=== PATIENT | male | born 1995 | race Two or more races ===

== ENCOUNTER 2024-10-08 16:35 | Inpatient (IN) | payer SELFPAY ==
[~2024-10-08] VITALS: Ht 175.3 cm; Wt 90.0 kg
[~2024-10-08 16:35] MED LIST: IBUP-2070 PO; NOCURR; VICOT
[2024-10-08 18:12] LABS: BASOPHILS % (AUTO) 0.2 % (0.0-2.0); EOSINOPHILS % (AUTO) 0.3 % (1.0-6.0); HEMATOCRIT 43.3 % (41-53); HEMOGLOBIN 14.6 g/dL (13.5-17.5); LYMPHOCYTES # (AUTO) 1.7 K/uL (1.0-4.8); LYMPHOCYTES % (AUTO) 12.4 % (22.0-44.0); MEAN CORPUSCULAR HEMOGLOBIN 29.6 pg (26.0-34.0); MEAN CORPUSCULAR HGB CONC 33.7 G/dL (31.0-37.0); MEAN CORPUSCULAR VOLUME 88 fL (80-100); MONOCYTES # (AUTO) 0.8 K/uL (0.1-1.0); NEUTROPHILS # (AUTO) 11.2 K/uL (1.8-7.7); NEUTROPHILS % (AUTO) 81.1 % (40.0-70.0); PLATELET COUNT (AUTO) 295 K/uL (150-450); RED BLOOD CELL COUNT(AUTO) 4.93 MIL/uL (4.50-5.90); RED CELL DISTRIBUTION WIDTH 12.9 % (11.5-14.5); WHITE BLOOD COUNT (AUTO) 13.8 K/uL (4.5-11.0)
[2024-10-08 18:24] LABS: ANION GAP 15 mmol/L (8-16); CALCIUM, TOTAL 9.3 mg/dL (8.8-10.5); CARBON DIOXIDE 23 mmol/L (22-29); CHLORIDE 99 mmol/L (98-107); CREATININE 1.12 mg/dL (0.60-1.30); GLOMERULAR FILTR. RATE CALC > 60 mL/min (>60); GLUCOSE,RANDOM 95 mg/dL (70-110); LIPASE 30 U/L (16-77); SODIUM SERUM 137 mmol/L (136-145); UREA NITROGEN, BLOOD 14 mg/dL (7-18)
[2024-10-08 18:27] LABS: BILIRUBIN,DIRECT 0.4 mg/dL (0.00-0.20)
[2024-10-08] MEDS: POTASSIUM CHLORIDE 20 MEQ ER TABLET PO ONE (19:16)
[2024-10-08] MEDS: MORPHINE SULFATE 4 MG/ML SYRINGE IVP ONE ×2 (19:16→21:50)
[2024-10-08] MEDS ORDERED: IOHEXOL 350 MG/ML 100 ML VIAL ONE (19:39)
[2024-10-08] MEDS ORDERED: 0.9% SODIUM CHLORIDE 10 ML SYRINGE IVP ONE (19:39)
[2024-10-08] MEDS ORDERED: SODIUM CHLORIDE 0.9% 100 ML ONE (19:39)
[2024-10-09] VITALS (7 sets, daily range): BP systolic 98–119; BP diastolic 55–70; PULSE 57–67; RESP 16–20; TEMP 97.4–98.3; O2SAT 95–99
[2024-10-09 00:10] LABS: APPEARANCE,URINE CLEAR (CLEAR); BILIRUBIN,URINE NEGATIVE (NEGATIVE); COLOR,URINE LIGHT YELLOW (YELLOW); GLUCOSE, URINE (UA) NEGATIVE (NEGATIVE); KETONES,URINE 80-100 mg/dL (NEGATIVE); LEUKOCYTE ESTERASE ,URINE NEGATIVE (NEGATIVE); NITRATE,URINE NEGATIVE (NEGATIVE); OCCULT BLOOD,URINE NEGATIVE (NEGATIVE); PH,URINE 5.5 (5.0-8.0); PROTEIN,URINE TRACE mg/dL (NEGATIVE); SPECIFIC GRAVITIY, URINE 1.017 (1.003-1.030); UROBILINOGEN,URINE <=1.0 mg/dL (<=1.0)
[2024-10-09 00:34] LABS: BACTERIA,URINE None Seen /HPF (None Seen); FINE GRANULAR CASTS,URINE 0-2 /LPF (None Seen); RBC,URINE None Seen /HPF (0-2); SQUAMOUS EPITHELIAL CELL,UR Rare /LPF (None Seen); WBC,URINE None Seen /HPF (0-5)
[2024-10-09] MEDS: MORPHINE SULFATE 2 MG/ML SYRINGE IVP ONE (01:15)
[2024-10-09] MEDS: POTASSIUM CHLORIDE 20 MEQ ER TABLET PO ONE ×2 (02:00→17:30)
[2024-10-09] MEDS ORDERED: ACETAMINOPHEN 325 MG TABLET PO PRN (02:00)
[2024-10-09] MEDS: DEXTROSE 5%-LACTATED RINGERS 1,000 ML IV SCH (03:30)
[2024-10-09] MEDS: ONDANSETRON HCL 4 MG/2 ML VIAL IVP PRN (05:08)
[2024-10-09] MEDS: MORPHINE SULFATE 2 MG/ML SYRINGE IVP PRN (05:59)
[2024-10-09] MEDS: HEPARIN SODIUM,PORCINE 5,000 UNITS/ML VIAL SQ SCH (08:36)
[2024-10-09 12:02] LABS: ANION GAP 11 mmol/L (8-16); CALCIUM, TOTAL 8.9 mg/dL (8.8-10.5); CARBON DIOXIDE 26 mmol/L (22-29); CHLORIDE 102 mmol/L (98-107); CREATININE 0.94 mg/dL (0.60-1.30); GLOMERULAR FILTR. RATE CALC > 60 mL/min (>60); GLUCOSE,RANDOM 100 mg/dL (70-110); POTASSIUM 3.3 mmol/L (3.5-5.1); SODIUM SERUM 139 mmol/L (136-145); UREA NITROGEN, BLOOD 9 mg/dL (7-18)
[2024-10-09 14:56] LABS: BASOPHILS % (AUTO) 0.4 % (0.0-2.0); EOSINOPHILS % (AUTO) 1.4 % (1.0-6.0); HEMATOCRIT 42.8 % (41-53); HEMOGLOBIN 14.9 g/dL (13.5-17.5); LYMPHOCYTES # (AUTO) 3.3 K/uL (1.0-4.8); LYMPHOCYTES % (AUTO) 43.6 % (22.0-44.0); MEAN CORPUSCULAR HEMOGLOBIN 30.8 pg (26.0-34.0); MEAN CORPUSCULAR HGB CONC 34.7 G/dL (31.0-37.0); MEAN CORPUSCULAR VOLUME 89 fL (80-100); MONOCYTES # (AUTO) 0.9 K/uL (0.1-1.0); MONOCYTES % (AUTO) 11.5 % (2.0-9.0); NEUTROPHILS # (AUTO) 3.3 K/uL (1.8-7.7); NEUTROPHILS % (AUTO) 43.1 % (40.0-70.0); PLATELET COUNT (AUTO) 307 K/uL (150-450); RED BLOOD CELL COUNT(AUTO) 4.84 MIL/uL (4.50-5.90); WHITE BLOOD COUNT (AUTO) 7.7 K/uL (4.5-11.0)
[2024-10-09 15:09] LABS: PROTHROMBIN TIME 11.5 SEC (9.4-11.6)
[2024-10-09 15:13] LABS: ANION GAP 13 mmol/L (8-16); CALCIUM, TOTAL 9.2 mg/dL (8.8-10.5); CARBON DIOXIDE 26 mmol/L (22-29); CHLORIDE 100 mmol/L (98-107); CREATININE 0.98 mg/dL (0.60-1.30); GLOMERULAR FILTR. RATE CALC > 60 mL/min (>60); GLUCOSE,RANDOM 95 mg/dL (70-110); SODIUM SERUM 139 mmol/L (136-145); UREA NITROGEN, BLOOD 7 mg/dL (7-18)
[2024-10-09 15:21] LABS: HEMOGLOBIN A1C 4.6 % (3.8-5.6)
[2024-10-09 15:23] LABS: ALANINE AMINOTRANSFERASE 39 U/L (12-78); ALKALINE PHOSPHATASE 51 U/L (46-116); ASPARTATE AMINOTRANSFERASE 46 U/L (15-37); BILIRUBIN,TOTAL 1.6 mg/dL (0.1-1.0); CHOL/HDL RATIO 2.8 (4.2-7.3); CHOLESTEROL 119 mg/dL (131-200); HDL CHOLESTEROL 42 mg/dL (40-60); LDL CHOL (CALC.) 62 mg/dL (0-130); TOTAL PROTEIN, SERUM 7.8 g/dL (6.4-8.2); TRIGLYCERIDES 77 mg/dL (15-150); TROPONIN I-HIGH SENSITIVITY 6 ng/L (<76)
[2024-10-09 20:55] LABS: GLUCOMETER DEV NAME(LOC) 6S.2; GLUCOSE,POINT OF CARE 90 MG/DL (70-110)
[2024-10-10 04:12] VITALS: BP 109/74; PULSE 59; RESP 18; TEMP 97.6; O2SAT 99
[2024-10-10 07:45] LABS: BASOPHILS % (AUTO) 0.4 % (0.0-2.0); EOSINOPHILS % (AUTO) 1.4 % (1.0-6.0); HEMATOCRIT 40.3 % (41-53); LYMPHOCYTES % (AUTO) 35.4 % (22.0-44.0); MEAN CORPUSCULAR HEMOGLOBIN 30.8 pg (26.0-34.0); MEAN CORPUSCULAR HGB CONC 34.8 G/dL (31.0-37.0); MEAN CORPUSCULAR VOLUME 88 fL (80-100); MONOCYTES # (AUTO) 0.6 K/uL (0.1-1.0); MONOCYTES % (AUTO) 10.6 % (2.0-9.0); NEUTROPHILS # (AUTO) 2.9 K/uL (1.8-7.7); NEUTROPHILS % (AUTO) 52.2 % (40.0-70.0); PLATELET COUNT (AUTO) 254 K/uL (150-450); RED BLOOD CELL COUNT(AUTO) 4.55 MIL/uL (4.50-5.90); RED CELL DISTRIBUTION WIDTH 12.5 % (11.5-14.5); WHITE BLOOD COUNT (AUTO) 5.6 K/uL (4.5-11.0)
[2024-10-10 07:57] LABS: ANION GAP 5 mmol/L (8-16); CALCIUM, TOTAL 8.7 mg/dL (8.8-10.5); CARBON DIOXIDE 31 mmol/L (22-29); CHLORIDE 105 mmol/L (98-107); CREATININE 0.96 mg/dL (0.60-1.30); GLOMERULAR FILTR. RATE CALC > 60 mL/min (>60); GLUCOSE,RANDOM 101 mg/dL (70-110); POTASSIUM 3.7 mmol/L (3.5-5.1); SODIUM SERUM 141 mmol/L (136-145); UREA NITROGEN, BLOOD 4 mg/dL (7-18)
[2024-10-10 08:00] VITALS: BP 108/68; PULSE 58; RESP 14; O2SAT 97
[2024-10-10 08:01] VITALS: BP 102/53; PULSE 61; RESP 18; TEMP 98.1; O2SAT 99
[2024-10-10 08:12] LABS: APPEARANCE,URINE CLEAR (CLEAR); BILIRUBIN,URINE NEGATIVE (NEGATIVE); COLOR,URINE LIGHT YELLOW (YELLOW); GLUCOSE, URINE (UA) NEGATIVE (NEGATIVE); KETONES,URINE TRACE mg/dL (NEGATIVE); LEUKOCYTE ESTERASE ,URINE NEGATIVE (NEGATIVE); NITRATE,URINE NEGATIVE (NEGATIVE); OCCULT BLOOD,URINE NEGATIVE (NEGATIVE); PROTEIN,URINE NEGATIVE (NEGATIVE); SPECIFIC GRAVITIY, URINE 1.015 (1.003-1.030); UROBILINOGEN,URINE <=1.0 mg/dL (<=1.0)
[2024-10-10 08:18] LABS: ALCOHOL, URINE DRUG SCREEN NEGATIVE (NEGATIVE); AMPHET/METH SCREEN,URINE NEGATIVE (NEGATIVE); BARBITURATE SCREEN, URINE NEGATIVE (NEGATIVE); BENZODIAZEPINES SCREEN,URINE NEGATIVE (NEGATIVE); CANNABINOID SCREEN,URINE POSITIVE (NEGATIVE); COCAINE SCREEN,URINE NEGATIVE (NEGATIVE); METHADONE SCREEN, URINE NEGATIVE (NEGATIVE); OPIATE SCREEN,URINE POSITIVE (NEGATIVE); PHENCYCLIDINE SCREEN,URINE NEGATIVE (NEGATIVE)
[2024-10-10] MEDS: MAGNESIUM CITRATE [LEMON] 300 ML ORAL SOLUTION PO ONE (12:22)
[2024-10-10 12:28] LABS: TROPONIN I-HIGH SENSITIVITY 4 ng/L (<76)
[2024-10-10 15:58] VITALS: BP 109/78; PULSE 57; RESP 19; TEMP 98.2; O2SAT 98
[2024-10-10] MEDS: PANTOPRAZOLE SODIUM 40 MG/VIAL IVP ONE (16:06)
[2024-10-10] MEDS ORDERED: IOHEXOL 350 MG/ML 100 ML VIAL ONE (17:02)
[2024-10-10] MEDS ORDERED: SODIUM CHLORIDE 0.9% 100 ML ONE (17:02)
[2024-10-10] MEDS ORDERED: 0.9% SODIUM CHLORIDE 10 ML SYRINGE IVP ONE (17:02)
[2024-10-11 00:40] VITALS: BP 111/69; PULSE 59; RESP 19; TEMP 98.9; O2SAT 100
[2024-10-11 08:05] VITALS: BP 115/60; PULSE 56; RESP 19; TEMP 98.2; O2SAT 99
[2024-10-11] MEDS: PANTOPRAZOLE SODIUM 40 MG/VIAL IVP SCH (08:36)
[2024-10-11] MEDS ORDERED: PANT-31 PO (12:40)
== END 2024-10-11 14:40 | disposition home or self-care (01) | DRG 392 ==
LOC: EMS 17:03 → EDH 10-09 01:55 → 6S 10-09 02:59
PROVIDERS: ADMIT Internal Medicine; ATTEND Internal Medicine
DX: K52.9 Noninfective gastroenteritis and colitis, unspecified (principal); E87.6 Hypokalemia; J45.909 Unspecified asthma, uncomplicated; K59.00 Constipation, unspecified; F17.200 Nicotine dependence, unspecified, uncomplicated; E80.6 Other disorders of bilirubin metabolism; Z79.899 Other long term (current) drug therapy; Z88.6 Allergy status to analgesic agent; Z90.49 Acquired absence of other specified parts of digestive tract; Z82.3 Family history of stroke; Z71.6 Tobacco abuse counseling
CPT/HCPCS: 70496; 70498; 71260; 74177; 80048; 80053; 80061; 80076; 80307; 81001; 81003; 82962; 83010; 83036; 83690; 83735; 84484; 85025; 85045; 85610; 85730; 86850; 86900; 86901; 99285; J1644; J2270; J2405; J2470; J7050

== ENCOUNTER 2024-12-19 06:17 | Inpatient (IN) | payer SELFPAY ==
[~2024-12-19] VITALS: Ht 172.7 cm; Wt 100.0 kg
[~2024-12-19 06:17] MED LIST changes: -IBUP-2070 PO; -NOCURR; +PANT-31 PO; -VICOT
[2024-12-19] MEDS: MORPHINE SULFATE 2 MG/ML SYRINGE IVP ONE ×2 (06:51→08:12)
[2024-12-19] MEDS: SODIUM CHLORIDE 0.9% 1,000 ML IV ONE (06:51)
[2024-12-19] MEDS: ONDANSETRON HCL 4 MG/2 ML VIAL IVP ONE (06:52)
[2024-12-19 06:53] LABS: BASOPHILS % (AUTO) 0.3 % (0.0-2.0); EOSINOPHILS % (AUTO) 0.2 % (1.0-6.0); HEMATOCRIT 49.2 % (41-53); HEMOGLOBIN 16.8 g/dL (13.5-17.5); LYMPHOCYTES # (AUTO) 2.2 K/uL (1.0-4.8); LYMPHOCYTES % (AUTO) 17.8 % (22.0-44.0); MEAN CORPUSCULAR HEMOGLOBIN 30.2 pg (26.0-34.0); MEAN CORPUSCULAR HGB CONC 34.2 G/dL (31.0-37.0); MEAN CORPUSCULAR VOLUME 88 fL (80-100); MONOCYTES # (AUTO) 0.9 K/uL (0.1-1.0); MONOCYTES % (AUTO) 7.4 % (2.0-9.0); NEUTROPHILS # (AUTO) 9.1 K/uL (1.8-7.7); NEUTROPHILS % (AUTO) 74.3 % (40.0-70.0); RED BLOOD CELL COUNT(AUTO) 5.57 MIL/uL (4.50-5.90); RED CELL DISTRIBUTION WIDTH 13.2 % (11.5-14.5); WHITE BLOOD COUNT (AUTO) 12.2 K/uL (4.5-11.0)
[2024-12-19 07:06] LABS: ANION GAP 7 mmol/L (8-16); CALCIUM, TOTAL 9.1 mg/dL (8.8-10.5); CARBON DIOXIDE 27 mmol/L (22-29); CHLORIDE 101 mmol/L (98-107); CREATININE 1.33 mg/dL (0.60-1.30); GLOMERULAR FILTR. RATE CALC > 60 mL/min (>60); GLUCOSE,RANDOM 117 mg/dL (70-110); POTASSIUM 3.5 mmol/L (3.5-5.1); SODIUM SERUM 135 mmol/L (136-145); UREA NITROGEN, BLOOD 10 mg/dL (7-18)
[2024-12-19 07:09] LABS: ALBUMIN 3.7 g/dL (3.4-5.0); BILIRUBIN,DIRECT 0.3 mg/dL (0.00-0.20); BILIRUBIN,TOTAL 2.2 mg/dL (0.1-1.0); TOTAL PROTEIN, SERUM 7.1 g/dL (6.4-8.2)
[2024-12-19 07:50] LABS: PLATELET COUNT (AUTO) 326 K/uL (150-450)
[2024-12-19 08:32] LABS: APPEARANCE,URINE CLEAR (CLEAR); BILIRUBIN,URINE NEGATIVE (NEGATIVE); COLOR,URINE COLORLESS (YELLOW); GLUCOSE, URINE (UA) NEGATIVE (NEGATIVE); KETONES,URINE TRACE mg/dL (NEGATIVE); LEUKOCYTE ESTERASE ,URINE NEGATIVE (NEGATIVE); NITRATE,URINE NEGATIVE (NEGATIVE); OCCULT BLOOD,URINE NEGATIVE (NEGATIVE); PH,URINE 7.5 (5.0-8.0); PH,URINE DRUG SCREEN 7.5 (5.0-8.0); PROTEIN,URINE NEGATIVE (NEGATIVE); SPECIFIC GRAVITIY, URINE 1.004 (1.003-1.030); UROBILINOGEN,URINE <=1.0 mg/dL (<=1.0)
[2024-12-19 08:35] LABS: BACTERIA,URINE None Seen /HPF (None Seen); RBC,URINE None Seen /HPF (0-2); WBC,URINE None Seen /HPF (0-5)
[2024-12-19 08:41] LABS: ALCOHOL, URINE DRUG SCREEN NEGATIVE (NEGATIVE); AMPHET/METH SCREEN,URINE NEGATIVE (NEGATIVE); BARBITURATE SCREEN, URINE NEGATIVE (NEGATIVE); BENZODIAZEPINES SCREEN,URINE NEGATIVE (NEGATIVE); CANNABINOID SCREEN,URINE POSITIVE (NEGATIVE); COCAINE SCREEN,URINE NEGATIVE (NEGATIVE); METHADONE SCREEN, URINE NEGATIVE (NEGATIVE); OPIATE SCREEN,URINE NEGATIVE (NEGATIVE); PHENCYCLIDINE SCREEN,URINE NEGATIVE (NEGATIVE)
[2024-12-19] MEDS: HYDROmorphone HCL 2 MG/ML SYRINGE IVP ONE (11:35)
[2024-12-19] MEDS: LORazepam 2 MG/ML VIAL IVP ONE (11:36)
[2024-12-19] MEDS ORDERED: ZOLPIDEM TARTRATE 5 MG TABLET PO PRN (20:00)
[2024-12-19] MEDS ORDERED: ALBUTEROL SULFATE 2.5 MG/0.5 ML NEB SOLUTION NEB PRN (20:00)
[2024-12-19] MEDS ORDERED: IPRATROPIUM BROMIDE 0.5 MG/2.5 ML NEB SOLUTION NEB PRN (20:00)
[2024-12-19] MEDS ORDERED: BISACODYL 10 MG RECTAL RECTAL SUPPOSITORY PR PRN (20:00)
[2024-12-19] MEDS ORDERED: MAGNESIUM HYDROXIDE SUSPENSION 30 ML UDCUP PO PRN (20:00)
[2024-12-19 20:31] VITALS: BP 98/60; PULSE 60; RESP 18; TEMP 98.1; O2SAT 96
[2024-12-19] MEDS: HYDROCODONE/ACETAMINOPHEN 5-325 MG TABLET PO PRN (20:32)
[2024-12-19] MEDS: DOCUSATE SODIUM 100 MG CAPSULE PO SCH (20:38)
[2024-12-20] VITALS (8 sets, daily range): BP systolic 100–129; BP diastolic 61–80; PULSE 48–74; RESP 18–19; TEMP 97.9–98.8; O2SAT 95–99
[2024-12-20] MEDS: HEPARIN SODIUM,PORCINE 5,000 UNITS/ML VIAL SQ SCH (00:08)
[2024-12-20] MEDS: PANTOPRAZOLE SODIUM 40 MG/VIAL IVP SCH (09:36)
[2024-12-20] MEDS: ONDANSETRON HCL 4 MG/2 ML VIAL IVP PRN (12:55)
[2024-12-20] MEDS: MORPHINE SULFATE 2 MG/ML SYRINGE IVP PRN (12:55)
[2024-12-20] MEDS: ACETAMINOPHEN 325 MG TABLET PO PRN (16:26)
[2024-12-20] MEDS ORDERED: SODIUM CHLORIDE 0.9% 500 ML IV ONE (19:47)
[2024-12-20] MEDS: PANTOPRAZOLE SODIUM 80 MG in SODIUM CHLORIDE 0.9% 100 ML IV SCH (20:01)
[2024-12-20] MEDS: SUCRALFATE 1 GM TABLET PO SCH (20:01)
[2024-12-21] VITALS (7 sets, daily range): BP systolic 101–117; BP diastolic 64–71; PULSE 44–56; RESP 17–19; TEMP 97.9–98.4; O2SAT 97–100
[2024-12-21 06:28] LABS: BASOPHILS % (AUTO) 0.3 % (0.0-2.0); HEMATOCRIT 44.4 % (41-53); LYMPHOCYTES # (AUTO) 2.9 K/uL (1.0-4.8); LYMPHOCYTES % (AUTO) 34.7 % (22.0-44.0); MEAN CORPUSCULAR HEMOGLOBIN 29.9 pg (26.0-34.0); MEAN CORPUSCULAR HGB CONC 33.8 G/dL (31.0-37.0); MEAN CORPUSCULAR VOLUME 89 fL (80-100); MONOCYTES # (AUTO) 0.6 K/uL (0.1-1.0); MONOCYTES % (AUTO) 7.5 % (2.0-9.0); NEUTROPHILS # (AUTO) 4.8 K/uL (1.8-7.7); NEUTROPHILS % (AUTO) 56.5 % (40.0-70.0); PLATELET COUNT (AUTO) 257 K/uL (150-450); RED BLOOD CELL COUNT(AUTO) 5.01 MIL/uL (4.50-5.90); RED CELL DISTRIBUTION WIDTH 12.7 % (11.5-14.5); WHITE BLOOD COUNT (AUTO) 8.5 K/uL (4.5-11.0)
[2024-12-21 06:37] LABS: ANION GAP 6 mmol/L (8-16); CALCIUM, TOTAL 8.4 mg/dL (8.8-10.5); CARBON DIOXIDE 32 mmol/L (22-29); CHLORIDE 104 mmol/L (98-107); CREATININE 1.17 mg/dL (0.60-1.30); GLOMERULAR FILTR. RATE CALC > 60 mL/min (>60); GLUCOSE,RANDOM 90 mg/dL (70-110); POTASSIUM 3.1 mmol/L (3.5-5.1); SODIUM SERUM 142 mmol/L (136-145); UREA NITROGEN, BLOOD 9 mg/dL (7-18)
[2024-12-21] MEDS ORDERED: POTASSIUM CHLORIDE 10% 40 MEQ/30 ML LIQUID UDCUP PO ONE (13:45)
[2024-12-21] MEDS: POTASSIUM CHLORIDE 20 MEQ ER TABLET PO ONE (13:50)
[2024-12-21 14:11] LABS: FREE T4 (FREE THYROXINE) 1.29 ng/dL (0.76-1.46); THYROID STIMULATING HORMONE 2.27 uIU/mL (0.36-3.74)
[2024-12-22 03:06] VITALS: BP 115/72; PULSE 45; RESP 17; TEMP 98.1; O2SAT 100
[2024-12-22 07:18] LABS: BASOPHILS % (AUTO) 0.2 % (0.0-2.0); EOSINOPHILS % (AUTO) 1.5 % (1.0-6.0); HEMATOCRIT 42.6 % (41-53); HEMOGLOBIN 14.7 g/dL (13.5-17.5); LYMPHOCYTES # (AUTO) 1.8 K/uL (1.0-4.8); LYMPHOCYTES % (AUTO) 25.2 % (22.0-44.0); MEAN CORPUSCULAR HEMOGLOBIN 30.5 pg (26.0-34.0); MEAN CORPUSCULAR HGB CONC 34.5 G/dL (31.0-37.0); MEAN CORPUSCULAR VOLUME 88 fL (80-100); MONOCYTES # (AUTO) 0.6 K/uL (0.1-1.0); NEUTROPHILS # (AUTO) 4.8 K/uL (1.8-7.7); NEUTROPHILS % (AUTO) 65.1 % (40.0-70.0); PLATELET COUNT (AUTO) 247 K/uL (150-450); RED BLOOD CELL COUNT(AUTO) 4.82 MIL/uL (4.50-5.90); RED CELL DISTRIBUTION WIDTH 12.7 % (11.5-14.5); WHITE BLOOD COUNT (AUTO) 7.3 K/uL (4.5-11.0)
[2024-12-22 07:39] LABS: ANION GAP 6 mmol/L (8-16); CALCIUM, TOTAL 8.5 mg/dL (8.8-10.5); CARBON DIOXIDE 30 mmol/L (22-29); CHLORIDE 103 mmol/L (98-107); CREATININE 1.15 mg/dL (0.60-1.30); GLOMERULAR FILTR. RATE CALC > 60 mL/min (>60); GLUCOSE,RANDOM 85 mg/dL (70-110); POTASSIUM 3.3 mmol/L (3.5-5.1); SODIUM SERUM 139 mmol/L (136-145); UREA NITROGEN, BLOOD 10 mg/dL (7-18)
[2024-12-22 07:50] VITALS: BP 103/72; PULSE 44; RESP 18; TEMP 97.9; O2SAT 96
[2024-12-22] MEDS ORDERED: PANT-31 PO (11:22)
[2024-12-22] MEDS ORDERED: SUCR1TAB28 PO (11:22)
[2024-12-22 11:40] VITALS: BP 114/75; PULSE 50; RESP 18; O2SAT 97
[2024-12-22] MEDS: POTASSIUM CHLORIDE 20 MEQ ER TABLET PO ONE (12:22)
== END 2024-12-22 12:50 | disposition home or self-care (01) | DRG 392 ==
LOC: EMS 06:18 → EDH 11:46 → 4E 12:23 → 5S 12-20 21:20
PROVIDERS: ADMIT Hospitalist; ATTEND Hospitalist
DX: R10.13 Epigastric pain (principal); D72.829 Elevated white blood cell count, unspecified; E80.6 Other disorders of bilirubin metabolism; Z90.49 Acquired absence of other specified parts of digestive tract; Z88.6 Allergy status to analgesic agent
CPT/HCPCS: 74181; 76700; 80048; 80076; 80307; 81001; 84439; 84443; 85025; 99285; G0378; J1171; J1644; J2060; J2270; J2405; J2470; J7030; J7040; J7050

== ENCOUNTER 2025-02-25 16:53 | Emergency (ER) | payer SELFPAY ==
[~2025-02-25] VITALS: Ht 165.1 cm; Wt 106.4 kg
[~2025-02-25 16:53] MED LIST changes: +SUCR1TAB28 PO
[2025-02-25] MEDS: SODIUM CHLORIDE 0.9% 1,000 ML IV ONE (17:15)
[2025-02-25] MEDS: ONDANSETRON HCL 4 MG/2 ML VIAL IVP ONE (17:15)
[2025-02-25 17:36] LABS: PLATELET COUNT (AUTO) 319 K/uL (150-450); RED BLOOD CELL COUNT(AUTO) 4.66 MIL/uL (4.50-5.90); RED CELL DISTRIBUTION WIDTH 12.8 % (11.5-14.5); WHITE BLOOD COUNT (AUTO) 12.9 K/uL (4.5-11.0)
[2025-02-25 17:43] LABS: CALCIUM, TOTAL 9.4 mg/dL (8.8-10.5); CREATININE 1.16 mg/dL (0.60-1.30); GLOMERULAR FILTR. RATE CALC > 60 mL/min (>60); GLUCOSE,RANDOM 112 mg/dL (70-110); SODIUM SERUM 142 mmol/L (136-145); UREA NITROGEN, BLOOD 13 mg/dL (7-18)
[2025-02-25 17:53] LABS: ASPARTATE AMINOTRANSFERASE 23.0 U/L (15-37); TOTAL PROTEIN, SERUM 7.3 g/dL (6.4-8.2)
[2025-02-25] MEDS ORDERED: 0.9% SODIUM CHLORIDE 10 ML SYRINGE IVP ONE (19:17)
[2025-02-25] MEDS ORDERED: SODIUM CHLORIDE 0.9% 100 ML ONE (19:17)
[2025-02-25] MEDS ORDERED: IOHEXOL 350 MG/ML 100 ML VIAL ONE (19:17)
[2025-02-25] MEDS: POTASSIUM CHL 10 MEQ/WATER 50 ML IV SCH (19:32)
[2025-02-25 21:01] LABS: INFLUENZA TYPE A NEGATIVE FOR TYPE A (NEGATIVE); INFLUENZA TYPE B NEGATIVE FOR TYPE B (NEGATIVE)
[2025-02-25 22:21] LABS: APPEARANCE,URINE CLEAR (CLEAR); GLUCOSE, URINE (UA) NEGATIVE (NEGATIVE); LEUKOCYTE ESTERASE ,URINE NEGATIVE (NEGATIVE); NITRATE,URINE NEGATIVE (NEGATIVE); OCCULT BLOOD,URINE NEGATIVE (NEGATIVE); PH,URINE DRUG SCREEN 8.0 (5.0-8.0); SPECIFIC GRAVITIY, URINE 1.021 (1.003-1.030)
[2025-02-25 22:29] LABS: ALCOHOL, URINE DRUG SCREEN NEGATIVE (NEGATIVE); AMPHET/METH SCREEN,URINE NEGATIVE (NEGATIVE); BARBITURATE SCREEN, URINE NEGATIVE (NEGATIVE); CANNABINOID SCREEN,URINE POSITIVE (NEGATIVE); COCAINE SCREEN,URINE NEGATIVE (NEGATIVE); METHADONE SCREEN, URINE NEGATIVE (NEGATIVE)
[2025-02-25 22:47] VITALS: TEMP 98.3
[2025-02-25 22:51] VITALS: BP 121/62; PULSE 81; RESP 16; O2SAT 95
== END 2025-02-25 23:35 | disposition home or self-care (01) ==
LOC: EMS 16:53
DX: T40.711A Poisoning by cannabis, accidental (unintentional), initial encounter (principal); E87.6 Hypokalemia; R11.2 Nausea with vomiting, unspecified; F12.20 Cannabis dependence, uncomplicated; J45.909 Unspecified asthma, uncomplicated; Z90.49 Acquired absence of other specified parts of digestive tract; Z88.6 Allergy status to analgesic agent; Z79.899 Other long term (current) drug therapy; Z20.822 Contact with and (suspected) exposure to COVID-19; Y92.89 Other specified places as the place of occurrence of the external cause
CPT/HCPCS: 99285; 74177; 96365; 96366; 96375; 96361; 80048; 80076; 81003; 83690; 85025; 87804; 36415; 93005; 96372; 80307; Q9967; J1200; J1630; J2405; J3480; J7030; J7050

== ENCOUNTER 2025-02-26 09:08 | Inpatient (IN) | payer SELFPAY ==
[~2025-02-26] VITALS: Ht 172.7 cm; Wt 104.5 kg
[2025-02-26] MEDS: MORPHINE SULFATE 2 MG/ML SYRINGE IVP ONE (09:41)
[2025-02-26] MEDS: FAMOTIDINE 20 MG/2 ML VIAL IVP ONE (09:42)
[2025-02-26] MEDS: MAG HYDROX/ALUMINUM HYD/SIMETH 30 ML SUSPENSION UDCUP PO ONE (09:42)
[2025-02-26] MEDS: ONDANSETRON HCL 4 MG/2 ML VIAL IVP ONE (09:42)
[2025-02-26] MEDS: SODIUM CHLORIDE 0.9% 1,000 ML IV ONE ×2 (09:42→16:54)
[2025-02-26 09:43] LABS: PLATELET COUNT (AUTO) 301 K/uL (150-450); RED BLOOD CELL COUNT(AUTO) 4.71 MIL/uL (4.50-5.90); RED CELL DISTRIBUTION WIDTH 13.1 % (11.5-14.5); WHITE BLOOD COUNT (AUTO) 9.7 K/uL (4.5-11.0)
[2025-02-26 09:55] LABS: ASPARTATE AMINOTRANSFERASE 26.0 U/L (15-37); CALCIUM, TOTAL 9.0 mg/dL (8.8-10.5); CREATININE 1.03 mg/dL (0.60-1.30); GLOMERULAR FILTR. RATE CALC > 60 mL/min (>60); GLUCOSE,RANDOM 112 mg/dL (70-110); SODIUM SERUM 141 mmol/L (136-145); TOTAL PROTEIN, SERUM 7.0 g/dL (6.4-8.2); UREA NITROGEN, BLOOD 8 mg/dL (7-18)
[2025-02-26] MEDS: POTASSIUM CHLORIDE 20 MEQ ER TABLET PO ONE (10:06)
[2025-02-26] MEDS: POTASSIUM CHL 10 MEQ/WATER 50 ML IV ONE (10:06)
[2025-02-26] MEDS: MORPHINE SULFATE 4 MG/ML SYRINGE IVP ONE (10:58)
[2025-02-26 15:39] VITALS: BP 123/74; PULSE 68; RESP 18; TEMP 98.4; O2SAT 98
[2025-02-26] MEDS ORDERED: ZOLPIDEM TARTRATE 5 MG TABLET PO PRN (16:00)
[2025-02-26] MEDS ORDERED: ACETAMINOPHEN 325 MG TABLET PO PRN (16:00)
[2025-02-26] MEDS ORDERED: MORPHINE SULFATE 2 MG/ML SYRINGE IVP PRN (16:00)
[2025-02-26] MEDS ORDERED: ONDANSETRON HCL 4 MG/2 ML VIAL IVP PRN (16:00)
[2025-02-26] MEDS ORDERED: MAGNESIUM HYDROXIDE SUSPENSION 30 ML UDCUP PO PRN (16:00)
[2025-02-26] MEDS ORDERED: BISACODYL 10 MG RECTAL RECTAL SUPPOSITORY PR PRN (16:00)
[2025-02-26] MEDS: HEPARIN SODIUM,PORCINE 5,000 UNITS/ML VIAL SQ SCH (16:53)
[2025-02-26] MEDS: HYDROCODONE/ACETAMINOPHEN 5-325 MG TABLET PO PRN (16:54)
[2025-02-26] MEDS ORDERED: DOCUSATE SODIUM 100 MG CAPSULE PO SCH (21:00)
[2025-02-27] MEDS ORDERED: PANTOPRAZOLE SODIUM 40 MG DR TABLET PO SCH (09:00)
== END 2025-02-26 19:50 | disposition left against medical advice (07) | DRG 392 ==
LOC: EMS 09:16 → EDH 12:30 → 6N 14:18
PROVIDERS: ADMIT Internal Medicine; ATTEND Internal Medicine
DX: R10.84 Generalized abdominal pain (principal); E87.6 Hypokalemia; J45.909 Unspecified asthma, uncomplicated; R11.10 Vomiting, unspecified; F12.90 Cannabis use, unspecified, uncomplicated; Z88.6 Allergy status to analgesic agent; Z90.49 Acquired absence of other specified parts of digestive tract
CPT/HCPCS: 80048; 80076; 83690; 83735; 85025; 96361; 96374; 96375; 96376; 99285; J1644; J2270; J2405; J3480; J3490; J7030; 36415-L1; 36415-TC

== ENCOUNTER 2025-02-27 00:34 | Emergency (ER) | payer SELFPAY ==
[~2025-02-27] VITALS: Ht 177.8 cm; Wt 100.0 kg
[2025-02-27 00:45] VITALS: BP 120/79; PULSE 62; RESP 16; TEMP 98.1; O2SAT 100
[2025-02-27 01:09] LABS: PLATELET COUNT (AUTO) 316 K/uL (150-450); RED BLOOD CELL COUNT(AUTO) 4.90 MIL/uL (4.50-5.90); RED CELL DISTRIBUTION WIDTH 12.8 % (11.5-14.5); WHITE BLOOD COUNT (AUTO) 8.0 K/uL (4.5-11.0)
[2025-02-27 01:17] LABS: CALCIUM, TOTAL 9.5 mg/dL (8.8-10.5); CREATININE 1.15 mg/dL (0.60-1.30); GLOMERULAR FILTR. RATE CALC > 60 mL/min (>60); GLUCOSE,RANDOM 112 mg/dL (70-110); SODIUM SERUM 140 mmol/L (136-145); UREA NITROGEN, BLOOD 5 mg/dL (7-18)
== END 2025-02-27 02:00 | disposition left against medical advice (07) ==
LOC: EMS 00:36
DX: R10.9 Unspecified abdominal pain (principal); Z53.21 Procedure and treatment not carried out due to patient leaving prior to being seen by health care provider
CPT/HCPCS: 80048; 83690; 85025; 93005